=== PATIENT | female | born 1980 | race Caucasian/White ===

== ENCOUNTER 2020-07-29 03:03 | Emergency (ER) | payer OTHER, SELFPAY ==
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
[2020-07-29 03:11] VITALS: BP 132/88; PULSE 102; RESP 18; TEMP 35.7; O2SAT 99; BMI 32.9
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
[2020-07-29] MEDS: traMADoL HCL 50 MG TABLET PO (05:38)
== END 2020-07-29 05:39 | disposition home or self-care (01) ==
PROVIDERS: Emergency Provider Internal Medicine
DX: S01.511A Laceration without foreign body of lip, initial encounter (principal); S00.83XA Contusion of other part of head, initial encounter; Y04.2XXA Assault by strike against or bumped into by another person, initial encounter; Y93.9 Activity, unspecified; Y92.9 Unspecified place or not applicable; Y99.9 Unspecified external cause status
CPT/HCPCS: 12011; 70486; 99284